=== PATIENT | female | born 1955 ===

== ENCOUNTER 2023-10-15 06:16 | Day surgery (SDC) | payer BC, SELFPAY ==
[2023-10-15 07:51] VITALS: BMI 23.2
[2023-10-15 08:07] VITALS: BMI 23.2
[2023-10-15 08:08] VITALS: BP 118/68
[2023-10-15 10:21] VITALS: BP 108/58
[2023-10-15 10:30] VITALS: BP 102/61
[2023-10-15 10:45] VITALS: BP 99/63
== END 2023-10-15 10:50 | disposition home or self-care (01) ==
LOC: GI 06:16
PROVIDERS: ATTENDING PHYSICIAN Internal Medicine Gastroenterology
DX: D13.2 Benign neoplasm of duodenum (principal); K31.7 Polyp of stomach and duodenum
CPT/HCPCS: 43251; 88305